=== PATIENT | male | born 1995 | race Caucasian/White ===

== ENCOUNTER 2018-08-07 04:26 | Emergency (ER) | payer SELFPAY ==
[2018-08-07 04:42] VITALS: BP 111/77; TEMP 95.4; O2SAT 99
[2018-08-07] MEDS ORDERED: IBUPROFEN 200 MG TAB PO ONE (04:52)
[2018-08-07] MEDS ORDERED: HYDROcodone 10MG/APAP 325MG 1 EA TAB PO ONE (04:52)
--- NOTE | 2018-08-07 05:38 | RAD ---
EXAM: Two view chest. INDICATION: Chest pain. COMPARISON: Chest x-ray: None. FINDINGS: Cardiac silhouette: Unremarkable. Isabella: Unremarkable. Lobar consolidation: None. Pleural effusion: None. Pneumothorax: None. Other: None. Bones: Unremarkable. Other: None. IMPRESSION: 1. No acute cardiopulmonary process. Electronically signed by: Tono Dietz MD 08/07/2018 5:37 AM CDT Workstation: [id number]
--- NOTE | 2018-08-07 06:06 | ED.PDOC ---
History of Present Illness - General Chief Complaint: Upper Extremity Injury Stated Complaint: Right shouder, arm, and chest wall pain Time Seen by Provider: 08/07/18 04:52 Source: patient, Vital Signs reviewed - History of Present Illness Initial Comments: Pain under right scapula radiating across to the right thorax. Timing/Duration: 4-6 hours Severity: moderate Improving Factors: nothing Worsening Factors: movement Associated Symptoms: chest pain, cough Allergies/Adverse Reactions: Allergies NO KNOWN ALLERGY Allergy (Verified 08/07/18 04:38) Home Medications: Ambulatory Orders Acetamin W/Cod #3 Tab [Tylenol w/CODEINE #3] 1 ea PO Q8HRS PRN #10 tab 08/07/18 Tramadol HCl [Ultram] 50 mg PO Q8HRS PRN #10 tab 08/07/18 Review of Systems - Review of Systems Constitutional: States: no symptoms reported EENTM: States: no symptoms reported Respiratory: States: cough. Denies: short of breath Cardiology: States: see HPI, other - pain radiating from back around to chest Gastrointestinal/Abdominal: States: no symptoms reported Genitourinary: States: no symptoms reported Musculoskeletal: States: back pain. Denies: neck pain Skin: States: no symptoms reported Neurological: States: no symptoms reported Past Medical History (General) - Patient Medical History Hx Seizures: No Hx Stroke: No Hx Dementia: No Hx Asthma: No Hx of COPD: No Hx Cardiac Disorders: No Hx Congestive Heart Failure: No Hx Pacemaker: No Hx Hypertension: No Hx Thyroid Disease: No Hx Diabetes: No Hx Gastroesophageal Reflux: No Hx Renal Disease: No Hx Cancer: No Hx of HIV: No Hx Hepatitis C: No Hx MRSA: Yes MRSA Source:: Wound Surgical History: no surgical history - Vaccination History Hx Tetanus, Diphtheria Vaccination: Yes Hx Influenza Vaccination: No Hx Pneumococcal Vaccination: No Immunizations Up to Date: Yes - Social History Hx Tobacco Use: Yes Hx Alcohol Use: Yes Hx Substance Use: No Family Medical History - Family History Mother Family History: No Known Living Status: Still Living Father Family History: No Known Living Status: Still Living Physical Exam - Physical Exam General Appearance: Alert, Comfortable, No apparent distress Neck: non-tender, full range of motion, supple Respiratory: lungs clear, normal breath sounds, no respiratory distress, no accessory muscle use, other - tenderness in right periscapular region Cardiovascular/Chest: regular rate, rhythm, no edema, no gallop, no JVD, no murmur Gastrointestinal/Abdominal: non tender, soft, no organomegaly Extremity: normal range of motion, non-tender, normal inspection, other - right shoulder ROM makes the pain worse Neurologic: no motor/sensory deficits, alert, normal mood/affect, oriented x 3 Skin Exam: normal color, warm/dry Progress - Progress Progress: 08/07/18 06:03 Feeling better but some pain remains described as pinching pain under the scapula that shoots down to his fingertips with shoulder ROM. He has no abdominal pain & I do not think this is GB related. However, his lab abnormalities including his slightly elevated alk phos are unexplained. He will f/u with a PCP on Wednesday for further evaluation. I believe tonights symptoms are thoracic wall pain. Initial plan is a sling & symptomatic tx. 08/07/18 06:43 Lab & x-ray report given to pt. to share with PCP. - Results/Orders Results/Orders: nml WBC & d-dimer K 5.1 Alk Phos 154 - EKG/XRAY/CT XRAY: chest - nml Departure - Departure Clinical Impression: Back pain Qualifiers: Back pain location: thoracic back pain Chronicity: acute Back pain laterality: right Qualified Code(s): M54.6 - Pain in thoracic spine Time of Disposition: 06:06 Disposition: Discharge to Home or Self Care Departure Forms: ED Discharge - Pt. Copy Instructions: Upper Back Pain (DC) Referrals: ADRI MCMAHON MD REF [Referring] - 08/08/18 Prescriptions: Acetamin W/Cod #3 Tab [Tylenol w/CODEINE #3] 1 ea PO Q8HRS PRN #10 tab PRN Reason: Moderate Pain Tramadol HCl [Ultram] 50 mg PO Q8HRS PRN #10 tab PRN Reason: Moderate Pain Home Medications: Ambulatory Orders Acetamin W/Cod #3 Tab [Tylenol w/CODEINE #3] 1 ea PO Q8HRS PRN #10 tab 08/07/18 Tramadol HCl [Ultram] 50 mg PO Q8HRS PRN #10 tab 08/07/18
== END 2018-08-07 06:20 | disposition home or self-care (01) ==
LOC: ER 04:26
DX: M54.6 Pain in thoracic spine (principal); R07.1 Chest pain on breathing; Z87.891 Personal history of nicotine dependence